=== PATIENT | female | born 1955 | race Caucasian/White ===

== ENCOUNTER 2021-03-26 12:38 | Observation (INO) | payer MEDICARE ==
[~2021-03-26] VITALS: Ht 172.7 cm; Wt 78.4 kg
[~2021-03-26 12:38] MED LIST: FLONASE SENSIM5.9 ML
--- NOTE | 2021-03-26 16:04 | NUR ---
PT CONTINUES TO ASK WHAT HAD HAPPENED DOOR TO DOOR SALES REPRESENTATIVE. PT ALSO DOES NOT RECALL ARRIVAL TO HOSPITAL.
--- NOTE | 2021-03-26 16:49 | NUR ---
REGUARDING PT'S MRI TOMORROW. PT AND PT'S REPORT THAT SHE HAS HAD "A BACK SURGERY 20 OR SO YEARS AGO WHERE THEY PUT RODS IN MY NECK AND ANOTHER 20+ YEARS AGO WHERE THEY PUT RODS IN MY NECK [facility]". "IT WAS DR GUERRERO". PT ALSO REPORTS "THEY DID A BIOPSY AT [facility]" IN REFERENCE TO CLIPS SHOWN IN CHEST XRAY. WILL COMPLETE MRI QUESTIONARE IN THE AM D/T PT'S TRANSIENT CONDITION AND ATTAIN RECORDS TOMORROW IT IS CURRENTLY THE WEEKEND. PT AND PT'S DENIES HAVING A MRI SINCE THE SURGERY.
--- NOTE | 2021-03-26 17:54 | NUR ---
PT'S LEAVES AND REPORTS THAT HE IS GOING HOME TP FIND THE RECORDS FROM PT'S SURGRY. PT'S DAUGHTER IN ROOM. NO CHANGE IN NUERO STATUS AT THIS TIME.
--- NOTE | 2021-03-26 18:35 | NUR ---
PT ARRIVED TODAY THROUGH THE ER WITH STROKE S/S INCLUDING FORGETFULNESS AND DISORIENTATION TO DATE AND EVENTS AFTER 10AM TODAY. PT'S NUERO STATUS REMAINS UNCHANGED SINCE ADMISSION TO [facility]. PT DEMONSTRAITS HTN AND HR AT 105 THAT HAS CONTINUED SINCE ARRIVAL AT ER. PT PROVIDED DINNER AND ATE 100% OF IT. PT SEEKING TO GO HOME IN THE AM.
--- NOTE | 2021-03-26 19:20 | NUR ---
REPORT RECEIVED FROM OFFGOING RNJANICE. PT RESTING IN BED VISITING WITH AT BEDSIDE.
--- NOTE | 2021-03-26 19:20 | NUR ---
REPORT GIVEN TO HERBERT DALTON. PT IN ROOM WITH DAUGHTER. DENIES NEEDS AT THIS TIME.
--- NOTE | 2021-03-26 20:03 | NUR ---
PT RESTING IN BED VISITING WITH AT BEDSIDE. PHYSICIAN COMPENSATION ANALYST TO ROOM FOR Q 2 HOUR NEURO CHECK. PT ASSESSMENT COMPLETE. PT DECRIBES SLIGHT HEADACHE AT THE TOP OF HEAD, STATES THAT THIS PAIN IS BEARABLE. DENIES SOB OR NAUSEA. PT IS FORGETFUL, DISORIENTED TO PLACE, DATE, EVENT, AND EVENTS THAT OCCURED WITHIN THE LAST FEW WEEKS. PT IS FRUSTRATED AT CURRENT ILLNESS. DISCUSSED CURRENT ILLNESS WITH PT AND HER . PT HAVING TROUBLE REMEMBERING PARTS OF DISCUSSION FROM JUST A FEW MINUTES PRIOR. PT DENIES NEEDS AT THIS TIME. POC FOR THIS SHIFT DISCUSSED. ENOUCRAGED PT TO USE CALL LIGHT FOR ANY NEEDS.
--- NOTE | 2021-03-26 20:50 | NUR ---
PT'S REQUESTING ORIGINALS OF MEDICAL RECORDS HE PROVIDED. COPIES MADE FOR PT'S CHART WITH HIS PERMISSION AND ORIGINALS HANDED BACK IN [employer]. PT AND AWARE THAT WE STILL HAVE THEIR CD. FURTHER NEEDS DENIED AT THIS TIME. CALL LIGHT IN REACH.
--- NOTE | 2021-03-26 22:05 | NUR ---
CORPORATE SPECIALIST TO ROOM FOR Q2 NEURO CHECK AND SCHEDULED MEDICATION ADMINISTRATION. PT RESTING IN BED WITH EYES CLOSED. SLEEPING ON COUCH AT BEDSIDE. PT REMAINS CONFUSED. DISORIENTED TO PLACE, DATE, EVENT, WELL EVENTS SINCE SHE HAS BEEN TO THE HOSPITAL. MOTOR STRENGTH AND SENSATION WNL. PUPILS WNL. ICE WATER REFILLED. BLANKET PROVIDED TO PT'S . PT ENCOURAGED TO USE CALL LIGHT FOR NEEDS, UNDERSTANDING STATED. FURTHER NEEDS DENIED AT THIS TIME.
--- NOTE | 2021-03-27 00:51 | NUR ---
ROUNDING. PT RESTING IN BED AWAKE. STATES SHE'S "JUST WIGGLING AROUND". DENIES NEEDS CALL LIGHT IN REACH. SLEEPING AT BEDSIDE.
--- NOTE | 2021-03-27 02:00 | NUR ---
PT ASSESSMENT COMPLETE. PT DENIES PAIN, NAUSEA, OR SOB. PT REMAINS SLIGHTLY CONFUSED/FORGETFUL ALTHOUGH IMPROVED FROM PREVIOUS. PT ORIENTED TO SELF, PLACE, DATE, BUT NOT EVENT. PT REMEMBERS MY LAST VISIT IN ROOM, AND REMEMBERS [place] ADMINISTRATION EARLIER. TELE # [address]. HR 60S-70S. PT UP TO VOID WITH SBA TOLERATED WELL. VOIDING CLEAR YELLOW URINE. PT DENIES FURTHER NEEDS AT THIS TIME. CALL LIGHT IN REACH.
--- NOTE | 2021-03-27 05:41 | NUR ---
NEUROCHECK COMPLETE. PT IS ALERT AND ORIENTED X4. PT DOES NOT RECALL INITAL EVENT AT HOME. ABLE TO ACCURATELY RECALL EVENTS THROUGHOUT THE NIGHT. MOTOR STRENGTH AND SENSATION INTACT. PT UP TO BATHROOM WITH SBA TOLERATED WELL. ICE WATER REFILLED. PT DENIES FURTHER NEEDS. COFFEE PROVIDED FOR . CALL LIGHT IN REACH.
--- NOTE | 2021-03-27 06:39 | NUR ---
SLEPT WELL. NEURO CHECKS Q 4. PT ALERT AND ORIENTED X 4 THIS AM. STILL CANNOT RECALL EVENTS LEADING UP TO HOSPITALIZATION. TELE #9, SR. IV SL. SBA TO BATHROOM. GOOD UP THROUGHOUT THE NIGHT. AT BEDSIDE. MRI AND ECHO TO BE DONE.
--- NOTE | 2021-03-27 07:20 | NUR ---
REPORT RECEIVED PT AT MRI, IN THE ROOM.
--- NOTE | 2021-03-27 07:54 | NUR ---
PATIENT BACK FROM MRI. IN BED IN ROOM EATING BREAKFAST. AM CARE DONE. CALL LIGHT IN REACH NOTHING ELSE NEEDED AT THIS TIME
--- NOTE | 2021-03-27 09:00 | NUR ---
SPOKE WITH PATIENT AND SPOUSE IN ROOM. PATIENT STATES SHE IS REMEMBERING EVERYTHING NOW. STATES "IT WAS SO WEIRD". PATIENT PREFERS DISCHARGE HOME. HAS NO BARRIERS TO THIS AT THIS TIME. WILL DRIVE HOME. SHE IS AWARE SHE IS STILL AWAITING TESTING AND DR ARANGO HAS NO CONCERNS TO DISCHARGE HOME.
--- NOTE | 2021-03-27 09:30 | NUR ---
THIS RN IN PTS ROOM TO GIVE PT HER MORNING MEDS AND DO MORNING ASSESSMENT. PT SITTING UP IN BED AND PERICO FROM ECHO IN ROOM TO DO PTS ECHO. PTS DAUGHTER AT BEDSIDE. NEURO EXAM NOTED AND PT DOES NOT HAVE ANY SIDE EFFECTS AND STATES THAT SHE FEELS LIKE SHE HAS "CLEARED" PTS DAUGHTER STATES NO CONCERNS WITH HOW PT ANSWERED QUESTIONS.
--- NOTE | 2021-03-27 10:18 | NUR ---
PATIENT VISITING WITH DAUGHTER. VITALS AND I&O'S CHARTED. CALL LIGHT IN REACH NOTHING ELSE NEEDED
[2021-03-27] MEDS ORDERED: LO-DOSE ASPIRIN81 MG PO (11:27)
--- NOTE | 2021-03-28 09:36 | EKG ---
[facility] [address] [facility] [place] [address] Signed Sinus tachycardia Possible Left atrial enlargement Anteroseptal infarct , age undetermined Abnormal ECG No previous ECGs available Confirmed by TYE WATERS MD ([id number]) on 03/28/2021 9:36:02 AM Electronically Signed By: TYE WATERS MD 03/28/21 0936 PATIENT NAME: CHRIS GARVEY ALFONZO Electrocardiogram DATE OF : 51 PHYSICIAN: TYE WATERS MD REPORT #: [id number] REPORT IS CONFIDENTIAL AND NOT TO BE RELEASED WITHOUT AUTHORIZATION
== END 2021-03-27 12:27 | disposition home or self-care (01) ==
LOC: ED 12:38 → MS 12:40
PROVIDERS: ADMIT Internal Medicine; ATTEND Internal Medicine
DX: G45.4 Transient global amnesia (principal); R41.0 Disorientation, unspecified; E78.5 Hyperlipidemia, unspecified; R03.0 Elevated blood-pressure reading, without diagnosis of hypertension; F43.9 Reaction to severe stress, unspecified; R00.0 Tachycardia, unspecified; R10.13 Epigastric pain; R94.31 Abnormal electrocardiogram [ECG] [EKG]; Z20.822 Contact with and (suspected) exposure to COVID-19; Z91.018 Allergy to other foods; Z82.49 Family history of ischemic heart disease and other diseases of the circulatory system
CPT/HCPCS: 70450; 70496; 70498; 70551; 71045; 80053; 80061; 81001; 83036; 84484; 85025; 85610; 85730; 93005; 93010; 93306; 96372; 99285-25; C9803; G0378; J1650; Q9967; U0003

== ENCOUNTER 2025-02-16 06:44 | Day surgery (SDC) | payer MEDICARE ==
[~2025-02-16] VITALS: Ht 172.7 cm; Wt 79.1 kg
[~2025-02-16 06:44] MED LIST changes: +IBLOOD GLUCOSE TEST STRIP 1 EA TEST VI PRN; +LACTATED RINGER'S 1,000 ML IV SCH; +LIDOCAINE HCL 1% 5 ML SDV INJ ONE; +LO-DOSE ASPIRIN81 MG PO; +MIDAZOLAM HCL 5 MG/5 ML VIAL IV PRN; +VITAMIN D3125 MC2 PO; +fentaNYL citrate 100 MCG/2 ML VIAL IV PRN
[2025-02-16] MEDS ORDERED: IBLOOD GLUCOSE TEST STRIP 1 EA TEST VI PRN (07:00)
[2025-02-16] MEDS ORDERED: LIDOCAINE HCL 1% 5 ML SDV INJ ONE (07:00)
[2025-02-16 07:06] VITALS: BP 132/71
--- NOTE | 2025-02-16 07:56 | NUR ---
VISITED DURING SPIRITUAL CARE ROUNDS. PT SUPPORTED BY IN ROOM. BOTH IN OVERALL GOOD SPIRITS, NO IMMEDIATE NEEDS. MARINE MECHANIC PROVIDED SUPPORTIVE PRESENCE, HOSPITALITY, PRAYER. PT AND EXPRESSED GRATITUDE.
[2025-02-16] MEDS ORDERED: LIDOCAINE HCL 2% 5 ML SDV ONE (10:24)
[2025-02-16] MEDS ORDERED: propofoL 200 MG/20 ML VIAL ONE ×2 (10:24→11:16)
--- NOTE | 2025-02-16 12:16 | NUR ---
02/16/25 1216 Oliva Solis 1208-PATIENT ARRIVED TO PACU ON 6L MASK REACTIVE TO VERBAL STIMULI OPENING EYES OPENING MOUTH ORAL AIRWAY REMOVED. PATINET LAYING LEFT LATERAL ABDOMEN SOFT. IVF INFUSING. SR HR 70'S.
[2025-02-16 12:43] VITALS: BP 142/78
--- NOTE | 2025-02-18 11:19 | OR ---
[facility] [address] [place], [place] [address] Signed DATE OF OPERATION: 02/16/2025 SURGEON: Navi Goetz MD PREOPERATIVE DIAGNOSIS: History of colonic polyps. POSTOPERATIVE DIAGNOSIS: Normal colonoscopy. PROCEDURE: Total colonoscopy. ANESTHESIA: Conscious sedation. PROCEDURE IN DETAIL: After obtaining informed consent, the patient was taken to the operating room where she was placed in the left lateral decubitus position. Adequate conscious sedation was achieved. At that point, the anus was thoroughly inspected. A rectal exam was also performed which was within normal limits. At this point, the previously lubricated scope was then inserted in the rectum, advanced all the way into the cecum. The colon was very tortuous with couple of very sharp turns especially in the splenic flexure as well as in hepatic flexure. There were some large diverticula that were scattered throughout the colon and the quality of the prep was fair. Once the scope reached the cecum, it was then thoroughly inspected and then it was pulled back with about 10 minutes of pullback time achieving an adequate circumferential visualization except for the fact that low quality prep full visualization. No obvious polyps, masses or lesions were identified except for the diverticuli. the scope was then pulled back down all the way to the rectum. The rectum and anus were inspected again endoscopically. No pathology was noted and the scope was then pulled back. The patient tolerated the procedure well, was taken to the recovery room in good and stable condition. Due to her history of colonic polyps as well as fair quality of the prep, it may be advisable to recommend followup colonoscopy in 5 years. Navi Goetz MD Electronically Signed By: NAVI GOETZ MD 02/18/25 1119 PATIENT NAME: CHRIS GARVEY OPERATIVE REPORT DATE OF : 51 REPORT #: [id number] PHYSICIAN: NAVI GOETZ MD PCP: JACK VANEGAS MD REPORT IS CONFIDENTIAL AND NOT TO BE RELEASED WITHOUT AUTHORIZATION [address] [place] [address] Signed CO/MODL /[id number] Copies: ~ Electronically Signed By: NAVI GOETZ MD 02/18/25 1119 PATIENT NAME: CHRIS GARVEY OPERATIVE REPORT DATE OF : 51 REPORT #: [id number] PHYSICIAN: NAVI GOETZ MD PCP: JACK VANEGAS MD REPORT IS CONFIDENTIAL AND NOT TO BE RELEASED WITHOUT AUTHORIZATION
== END 2025-02-16 12:45 | disposition home or self-care (01) ==
LOC: DS 06:44
PROVIDERS: ATTEND Transplant Surgery
PROC: 0DJD8ZZ Inspection of Lower Intestinal Tract, Via Natural or Artificial Opening Endoscopic (ICD-10-PCS; principal; 2025-02-16 08:15)
DX: Z12.11 Encounter for screening for malignant neoplasm of colon (principal); K63.89 Other specified diseases of intestine; M54.12 Radiculopathy, cervical region; G45.4 Transient global amnesia; E78.00 Pure hypercholesterolemia, unspecified; K64.8 Other hemorrhoids; Z86.0101 Personal history of adenomatous and serrated colon polyps
CPT/HCPCS: 00811; J2003; J2704; J7121